=== PATIENT | male | born 1980 | race African-American/Black ===

== ENCOUNTER 2017-09-23 03:30 | Emergency (ER) | payer BC ==
[~2017-09-23] VITALS: Ht 177.8 cm; Wt 118.3 kg
[2017-09-23] MEDS ORDERED: PREDNISONE10 M1 PO (04:47)
[2017-09-23] MEDS ORDERED: PEPCID20 MG PO (04:47)
[2017-09-23 04:58] VITALS: BP 134/77
== END 2017-09-23 04:59 | disposition home or self-care (01) ==
LOC: EXP 03:30 → EME 03:30 → EXP 04:59
DX: T78.40XA Allergy, unspecified, initial encounter (principal); L50.9 Urticaria, unspecified; Z91.013 Allergy to seafood; Z91.018 Allergy to other foods; F17.200 Nicotine dependence, unspecified, uncomplicated
CPT/HCPCS: 99281; 99283; J7512; Q0177